=== PATIENT | male | born 1960 | race American Indian/Alaskan Native ===

== ENCOUNTER 2017-07-19 08:07 | Day surgery (SDC) | payer BC ==
[2017-07-19 09:12] VITALS: BMI 24.3
[2017-07-19] MEDS ORDERED: Midazolam 2 MG/2 ML VIAL ONE (10:41)
[2017-07-19] MEDS ORDERED: Propofol 10 mg/ml Inj (20 ML) ONE (10:41)
[2017-07-19 11:34] VITALS: RESP 14; TEMP 97.1
[2017-07-19 11:44] VITALS: O2SAT 100
[2017-07-19 13:37] VITALS: BP 141/50; PULSE 50
== END 2017-07-19 12:36 | disposition home or self-care (01) ==
LOC: C.ENDO 08:07
PROVIDERS: ATTEND Internal Medicine Gastroenterology
DX: D12.2 Benign neoplasm of ascending colon (principal); D12.3 Benign neoplasm of transverse colon; D12.4 Benign neoplasm of descending colon; D12.5 Benign neoplasm of sigmoid colon; K62.1 Rectal polyp; K57.90 Diverticulosis of intestine, part unspecified, without perforation or abscess without bleeding; K64.8 Other hemorrhoids
CPT/HCPCS: 45388; 88305; J2250; J2704